=== PATIENT | female | born 1940 | race Caucasian/White ===

== ENCOUNTER 2021-07-02 11:05 | Outpatient (CLI) | payer MEDICARE, BC ==
[2021-07-02 12:35] LABS: Hemoglobin 12.6 g/dL (12.0-15.5); Mean Corpuscular HGB CONC 32.7 g/dL (32.0-36.0); Mean Corpuscular Hemoglobin 32.6 pg (27.0-33.0); Mean Corpuscular Volume 99.5 fl (81.6-98.3); Mean Platelet Volume 10.2 fl (7.4-10.4); Platelet Count 184 10x3/uL (150-450); RBC Distribution Width 13.3 % (11.5-14.5); Red Blood Cell (RBC) Count 3.87 10x6/uL (3.90-5.03)
[2021-07-02 12:51] LABS: Prothrombin Time 11.4 sec (9.5-12.1)
[2021-07-02 12:53] LABS: Anion Gap 12 mmol/L (10-20); BUN (Urea Nitrogen) 13 mg/dL (9.8-20.1); Calc. Creatinine Clearance 0 mL/min (70-130); Calcium 11.3 mg/dL (7.8-10.44); Carbon Dioxide 29 mmol/L (23-31); Chloride 101 mmol/L (98-107); Glucose 85 mg/dL (83-110); Potassium 4.6 mmol/L (3.5-5.1); Sodium 137 mmol/L (136-145)
[2021-07-03 01:01] LABS: SARS-CoV-2 PCR by NAA Not Detected (NotDetected)
== END 2021-07-02 11:06 | disposition home or self-care (01) ==
LOC: LABBT 11:05
PROVIDERS: ATTEND Internal Medicine Cardiovascular Disease
DX: Z01.812 Encounter for preprocedural laboratory examination (principal); T82.111A Breakdown (mechanical) of cardiac pulse generator (battery), initial encounter; Z20.822 Contact with and (suspected) exposure to COVID-19
CPT/HCPCS: 80048; 85027; 85610; U0003; U0005

== ENCOUNTER 2021-07-04 06:32 | Day surgery (SDC) | payer MEDICARE, BC ==
[2021-07-03 13:30] VITALS: BMI 15.7
[2021-07-04] MEDS ORDERED: Vancomycin HCl 500 MG VIAL ONE (07:06)
[2021-07-04] MEDS ORDERED: Gentamicin 80 MG/2 ML VIAL ONE (10:36)
[2021-07-04] MEDS ORDERED: Lidocaine 1% (PF) 30 ML VIAL ONE (10:36)
[2021-07-04] MEDS ORDERED: CEFAZOLIN 1 GM VIAL ONE (10:36)
[2021-07-04] MEDS ORDERED: Fentanyl 100 MCG/2 ML VIAL ONE (11:54)
[2021-07-04] MEDS ORDERED: Propofol 1,000 MG/100 ML VIAL IV ONE (11:54)
[2021-07-04] MEDS ORDERED: PHENYLEPHRINE-NS 100 MCG/ML 10 ML SYRINGE ONE (12:10)
[2021-07-04] MEDS ORDERED: PROPOFOL 200 MG/20 ML VIAL ONE (12:10)
== END 2021-07-04 17:46 | disposition home or self-care (01) ==
LOC: SDC 06:32
PROVIDERS: ATTEND Internal Medicine Cardiovascular Disease
PROC: 0JPT0PZ Removal of Cardiac Rhythm Related Device from Trunk Subcutaneous Tissue and Fascia, Open Approach (ICD-10-PCS; principal; 2021-07-04)
PROC: 0JH609Z Insertion of Cardiac Resynchronization Defibrillator Pulse Generator into Chest Subcutaneous Tissue and Fascia, Open Approach (ICD-10-PCS; 2021-07-04)
PROC: 3E0132A Introduction of Anti-Infective Envelope into Subcutaneous Tissue, Percutaneous Approach (ICD-10-PCS; 2021-07-04)
DX: I13.0 Hypertensive heart and chronic kidney disease with heart failure and stage 1 through stage 4 chronic kidney disease, or unspecified chronic kidney disease (principal); I50.22 Chronic systolic (congestive) heart failure; N18.30 Chronic kidney disease, stage 3 unspecified; I42.8 Other cardiomyopathies; I44.2 Atrioventricular block, complete; T82.111A Breakdown (mechanical) of cardiac pulse generator (battery), initial encounter; I48.21 Permanent atrial fibrillation; I48.3 Typical atrial flutter; I49.5 Sick sinus syndrome; E03.9 Hypothyroidism, unspecified; M81.0 Age-related osteoporosis without current pathological fracture; Z79.01 Long term (current) use of anticoagulants; Z79.899 Other long term (current) drug therapy; Z88.1 Allergy status to other antibiotic agents; Z88.2 Allergy status to sulfonamides; Z88.5 Allergy status to narcotic agent; Z88.8 Allergy status to other drugs, medicaments and biological substances
CPT/HCPCS: 33228; 33241; 93005; C1882; 93010; J0690; J1580; J2001; J2704; J3010; J3370